=== PATIENT | male | born 1960 | race Caucasian/White ===

== ENCOUNTER 2017-06-14 01:39 | Emergency (ER) | payer OTHER ==
[~2017-06-14] VITALS: Ht 167.6 cm; Wt 73.9 kg
[2017-06-14 02:17] LABS: PLATELET COUNT 245 x10^3mcL (130-400); RED CELL DISTRIBUTION WIDTH 12.3 % (11.5-14.5)
[2017-06-14 02:24] LABS: BASOPHIL % 6.2 % (0-2)
[2017-06-14 02:26] LABS: CALCIUM 8.6 mg/dL (8.5-10.1); CARBON DIOXIDE 31.1 mmol/L (21-32); CHLORIDE SERUM 101 mmol/L (98-107); CREATININE SERUM 1.3 mg/dL (0.7-1.3); GFR1 > 60 mL/min; GLUCOSE SERUM 171 mg/dL (74-106); POTASSIUM SERUM 3.4 mmol/L (3.5-5.1); SODIUM SERUM 139 mmol/L (136-145)
[2017-06-14 02:29] LABS: PHOSPHOROUS 3.7 mg/dL (2.5-4.9)
[2017-06-14 02:30] VITALS: BP 127/81
[2017-06-14 02:42] LABS: CK-MB 1.3 ng/mL (0-3.6)
== END 2017-06-14 02:30 | disposition short-term general hospital (02) ==
LOC: ED 01:39
PROVIDERS: Emergency Medicine
DX: I21.09 ST elevation (STEMI) myocardial infarction involving other coronary artery of anterior wall (principal); I25.2 Old myocardial infarction; I10 Essential (primary) hypertension
CPT/HCPCS: 83880; J1644; J2270; J2405; J7030